=== PATIENT | male | born 1970 | race Caucasian/White ===

== ENCOUNTER 2021-10-29 13:43 | Emergency (ER) | payer BC ==
[2021-10-29] MEDS ORDERED: ACETAMINOPHEN TAB 500 MG TAB PO STA (15:34)
[2021-10-29] MEDS ORDERED: IBUPROFEN 600 MG TAB PO STA (15:34)
[2021-10-29] MEDS ORDERED: SODIUM CHLORIDE 0.9% 500 ML 500 ML IV ONE (15:34)
--- NOTE | 2021-10-29 15:44 | ED ---
General Adult HPI - General Chief complaint: Shortness of Breath Stated complaint: Covid+/antibodies Time Seen by Provider: 10/29/21 14:20 Source: patient, RN notes reviewed, old records reviewed Mode of arrival: ambulatory Limitations: no limitations - History of Present Illness Initial comments: This is a 51-year-old male who presents sense to the emergency department presents to the emergency department stating that he started having symptoms of cold 1 week ago and yesterday he was told he was tested positive. Patient comes in today for a monoclonal antibodies. Patient states she has a little shortness of breath but continues to cough and has lost some of the states. Patient denies any diarrhea per patient denies chest pain or elbow days. Patient denies abdominal pain patient denies nausea vomiting. Patient states he never did get the vaccinations. - Related Data Allergies Allergy/AdvReac Type Severity Reaction Status Date / Time No Known Allergies Allergy Verified 10/29/21 14:27 Review of Systems ROS Statement: Those systems with pertinent positive or pertinent negative responses have been documented in the HPI. ROS Other: All systems not noted in ROS Statement are negative. Past Medical History Past Medical History: No Reported History History of Any Multi-Drug Resistant Organisms: None Reported Past Surgical History: Hernia Repair Past Psychological History: No Psychological Hx Reported Smoking Status: Never smoker Past Alcohol Use History: Occasional Past Drug Use History: None Reported General Exam - General Exam Comments Initial Comments: GENERAL: Patient is well-developed and well-nourished. Patient is nontoxic and well- hydrated and is in mild distress. ENT: Neck is soft and supple. No significant lymphadenopathy is noted. Oropharynx is clear. Moist mucous membranes. Neck has full range of motion without eliciting any pain. EYES: The sclera were anicteric and conjunctiva were pink and moist. Extraocular movements were intact and pupils were equal round and reactive to light. Eyelids were unremarkable. PULMONARY: Unlabored respirations. Good breath sounds bilaterally. No audible rales rhonchi or wheezing was noted. CARDIOVASCULAR: There is a regular rate and rhythm without any murmurs gallops or rubs. ABDOMEN: Soft and nontender with normal bowel sounds. SKIN: Skin is clear with no lesions or rashes and otherwise unremarkable. NEUROLOGIC: Patient is alert and oriented x3. Cranial nerves II through XII are grossly intact. Motor and sensory are also intact. Normal speech, volume and content. Symmetrical smile. MUSCULOSKELETAL: Normal extremities with adequate strength and full range of motion. LYMPHATICS: No significant lymphadenopathy is noted PSYCHIATRIC: Normal psychiatric evaluation. Limitations: no limitations Course Vital Signs 10/29/21 14:22 Temperature 102.5 F H Pulse Rate 94 Respiratory 19 Rate Blood Pressure 110/77 O2 Sat by Pulse 97 Oximetry Medical Decision Making - Medical Decision Making X-ray shows no signs of pneumonia. Patient received monoclonal antibodies. Disposition Clinical Impression: COVID-19 Disposition: HOME SELF-CARE Condition: Good Instructions (If sedation given, give patient instructions): Coronavirus Disease 2019 (COVID-19) Additional Instructions: Patient should return if there is any difficulty breathing or shortness of breath Is patient prescribed a controlled substance at d/c from ED?: No Referrals: None,Stated [Primary Care Provider] - 1-2 days Time of Disposition: 16:00
--- NOTE | 2021-10-29 15:57 | XR ---
EXAMINATION TYPE: XR chest 1V portable DATE OF EXAM: 10/29/2021 HISTORY: Shortness of breath. COMPARISON: None. TECHNIQUE: Single view of the chest is submitted. FINDINGS: Demonstrated are scattered senescent parenchymal change. There is no evidence for focal infiltrate. The heart is stable. Hilar and mediastinal structures are within normal limits. Degenerative changes are seen of the dorsal spine. IMPRESSION: 1. Chronic changes without evidence for acute pulmonary disease.
[2021-10-29 16:14] VITALS: RESP 18
[2021-10-29] MEDS ORDERED: BAMLANIVIMAB (EUA) 700 MG, ETESEVIMAB (EUA) 1,400 MG in SODIUM CHLORIDE 0.9% 100 ML IVPB ONE (16:15)
[2021-10-29] MEDS ORDERED: SODIUM CHLORIDE 0.9% 50 ML IVPB ONE (16:15)
[2021-10-29 18:19] VITALS: BP 113/56; PULSE 76; TEMP 98.9
== END 2021-10-29 18:17 | disposition home or self-care (01) ==
LOC: EC 13:43
DX: U07.1 COVID-19 (principal)
CPT/HCPCS: 71045; 99285; 96360; J3490